=== PATIENT | male | born 1980 | race Caucasian/White ===

== ENCOUNTER 2020-02-24 12:46 | Emergency (ER) | payer OTHER ==
--- NOTE | 2020-02-24 13:03 | ED Physician Documentation ---
PD HPI SKIN - Stated complaint Stated Complaint: CHEST LUMP - History obtained from History obtained from: Patient - History of Present Illness Timing - onset: How many months ago (1) Timing - duration: Months (1) Timing - details: Abrupt onset (noted onset of pain in lower sternal area a month ago, worse at times, and he says he feels a lump in the area at times. Tender to palpation and movement, particularly shoulder crunch type movements. No change with eating. denies regularly cough, fevers, nausea, vomiting.), Waxing and waning Location: Chest Quality / character: Painful, Raised (he says he feels a lump there at times.). No: Itchy, Discolored, Vesicular Associated symptoms: No: Fever, Myalgias, Dyspnea, N/V/D Similar symptoms before: Has not had sx before Recently seen: Clinic (seen at [facility] about it and was to get U/S of the area but referral not through as yet.) Review of Systems Constitutional: denies: Fever, Chills Nose: denies: Rhinorrhea / runny nose, Congestion Throat: denies: Sore throat Cardiac: reports: Chest pain / pressure. denies: Palpitations, Pedal edema, Calf pain Respiratory: denies: Dyspnea, Cough, Wheezing GI: reports: Abdominal Pain (pain is upper abd to lower sternal area.). denies: Nausea, Vomiting, Diarrhea Skin: denies: Rash, Lesions PD PAST MEDICAL HISTORY - Past Medical History Cardiovascular: None Respiratory: None Neuro: None - Present Medications Home Medications: Ambulatory Orders Medication Instructions Recorded Confirmed Diclofenac Sodium 1 applic TP BID #100 gel..gram. 02/24/20 Hydrocodone/Acetaminophen 1 each PO Q6H PRN #15 tablet 02/24/20 [Hydrocodone-Acetamin 5-325 mg] Naproxen 375 mg PO TID #30 tablet 02/24/20 - Allergies Allergies/Adverse Reactions: Allergies Allergy/AdvReac Type Severity Reaction Status Date / Time No Known Drug Allergies Allergy Verified 02/24/20 12:59 - Living Situation Living Arrangement: reports: At home - Social History Does the pt smoke?: No Does the pt have substance abuse?: No PD ED PE NORMAL - Vitals Vital signs reviewed: Yes - General General: Alert and oriented X 3, No acute distress, Well developed/nourished - HEENT HEENT: Moist mucous membranes, Pharynx benign - Neck Neck: Supple, no meningeal sign, No adenopathy - Cardiac Cardiac: RRR, No murmur - Respiratory Respiratory: Clear bilaterally, Other (there is focal tenderness without mass/deformity at lower xyphoid area. No redness, rash nor sores. No epigastric tenderness per se. ) - Abdomen Abdomen: Normal bowel sounds, Soft, Non tender, Non distended Results - Vitals Vitals: Vital Signs - 24 hr 02/24/20 02/24/20 12:59 15:17 Temperature 36.5 C 36.5 C Heart Rate 75 56 L Respiratory 18 16 Rate Blood Pressure 142/79 H 152/90 H O2 Saturation 100 100 Oxygen O2 Source Room air - Labs Labs: Laboratory Tests 02/24/20 13:32 Sodium 137 Potassium 3.2 L Chloride 102 Carbon Dioxide 24 Anion Gap 11.0 BUN 15 Creatinine 1.0 Estimated GFR (MDRD) 83 L Glucose 123 H Calcium 9.3 Total Bilirubin 0.8 AST 25 ALT 25 Alkaline Phosphatase 62 C-Reactive Protein < 1.0 Total Protein 7.3 Albumin 4.7 Globulin 2.6 Albumin/Globulin Ratio 1.8 Lipase 29 - Rads (name of study) chest CT Radiology: Prelim report reviewed (no acute process), See rad report PD MEDICAL DECISION MAKING - ED course Complexity details: reviewed results (given the area of tenderness at zyphoid and seeming behind the lower sternum, I did not feel U/S would be the most effective, and opted for CT with contrast. ), considered differential (seems more tendeerness of the xyphoid. No noted hernia, skin lesion. Not really epigastric per se. ), d/w patient Departure - Departure Disposition: 01 Home, Self Care Clinical Impression: Xyphoidalgia, Upper abdominal pain Condition: Stable Record reviewed to determine appropriate education?: Yes Instructions: ED Chest Pain Costochondritis Prescriptions: Diclofenac Sodium 1 applic TP BID #100 gel..gram. Hydrocodone/Acetaminophen [Hydrocodone-Acetamin 5-325 mg] 1 each PO Q6H PRN #15 tablet PRN Reason: Pain Naproxen 375 mg PO TID #30 tablet Comments: Your CT scan did not show any acute structural abnormality in the area. I resume it some inflammation along the muscle attachment at the cartilage and xiphoid. We can treat this with anti-inflammatories both orally and topically. To that add Tylenol if needed for pain every 4-6 hours. Add pain meds if needed. Follow-up with your primary care regarding further evaluation and treatment. Light duty for the next 5 days. Forms: Activity restrictions Discharge Date/Time: 02/24/20 15:26
[2020-02-24] MEDS ORDERED: KETOROLAC 30 MG/ML VIAL IVP STA (13:17)
[2020-02-24 13:59] LABS: ALBUMIN 4.7 g/dL (3.2-5.5); ALBUMIN/GLOBULIN RATIO 1.8 (1.0-2.2); ALKALINE PHOSPHATASE 62 IU/L (42-121); ALT ALANINE AMINOTRANSFERASE 25 IU/L (10-60); AST ASPARTATE AMINOTRANSFERASE 25 IU/L (10-42); BILIRUBIN,TOTAL 0.8 mg/dL (0.2-1.0); BUN - BLOOD UREA NITROGEN 15 mg/dL (6-20); CALCIUM 9.3 mg/dL (8.5-10.3); CARBON DIOXIDE - CO2 24 mmol/L (21-32); CHLORIDE 102 mmol/L (101-111); GLUCOSE 123 mg/dL (70-100); LIPASE 29 U/L (22-51); SODIUM 137 mmol/L (135-145); TOTAL PROTEIN 7.3 g/dL (6.7-8.2)
[2020-02-24 14:02] LABS: CRP - C-REACTIVE PROTEIN < 1.0 mg/dL (0-1.0)
[2020-02-24] MEDS ORDERED: IOVERSOL 320 100 ML VIAL IVP ONE ×2 (14:09→18:50)
--- NOTE | 2020-02-24 14:27 | CT Report ---
PROCEDURE: CHEST W INDICATIONS: lower sternal/xyphoid area lump/tender CONTRAST: IV CONTRAST: Optiray 320 ml: 100 PO CONTRAST: *NO PO CONTRAST TECHNIQUE: After the administration of intravenous contrast, 5 mm thick sections acquired from the pulmonary api angela to the posterior costophrenic angles. 7 mm thick coronal MIP reformats were acquired. For radia tion dose reduction, the following was used: automated exposure control, adjustment of mA and/or kV according to patient size. COMPARISON: None. FINDINGS: Image quality: Excellent. Lungs and pleura: No acute air space opacities. No pleural effusions or pneumothorax. Central and peripheral airways are patent and normal in caliber. Mediastinum: Heart size is normal. No pericardial effusion. No mediastinal or hilar adenopathy by size criteria. Thoracic aorta and central pulmonary arteries are normal in size. Esophagus is tonya l in caliber. No hiatal hernia. Bones and chest wall: No suspicious bony lesions. No vertebral body compression fractures. No axil pat or supraclavicular adenopathy by size criteria. Thyroid gland is unremarkable. Abdomen: Visualized upper abdominal solid organs appear normal. Upper abdominal bowel loops are nor mal in caliber. Miscellaneous: A radiopaque transplant placed in the midline just inferior to the tip of the sternum, corresponding to subjective palpable abnormality. There is no lesion identified by CT corresponding to this marker. IMPRESSION: 1. There is no lesion seen on CT corresponding to the subjective palpable lump just inferior to the t ip of the sternum. 2. Otherwise unremarkable chest CT with contrast. Reviewed by: Grady Ortiz MD on 02/24/2020 2:25 PM PDT Approved by: Grady Ortiz MD on 02/24/2020 2:25 PM PDT Station ID: [id number]
[2020-02-24 15:18] VITALS: BP 152/90
== END 2020-02-24 15:26 | disposition home or self-care (01) ==
LOC: ED 12:46
DX: R07.2 Precordial pain (principal); R10.10 Upper abdominal pain, unspecified
CPT/HCPCS: 36415; 71260; 80053; 83690; 86140; 96374; 99284; Q9967

== ENCOUNTER 2020-06-16 20:30 | Emergency (ER) | payer SELFPAY ==
--- NOTE | 2020-06-16 21:30 | XRAY Report ---
PROCEDURE: Foot 3 View RT INDICATIONS: PAIN/TENDERNESS L 5TH TOE...STUBBED IT... TECHNIQUE: 3 views of the foot were acquired. COMPARISON: None. FINDINGS: Bones: Fifth digit proximal phalanx minimally displaced fracture at the distal aspect. No dislocation . No suspicious bony lesions. Soft tissues: No tibiotalar joint effusion. Achilles tendon appears normal. IMPRESSION: Fifth digit proximal phalanx minimally displaced fracture. Reviewed by: Silver Meek MD on 06/16/2020 9:29 PM [facility] Approved by: Silver Meek MD on 06/16/2020 9:29 PM [facility] Station ID: [id number]
--- NOTE | 2020-06-16 21:45 | ED Physician Documentation ---
History of Present Illness - Stated complaint Stated Complaint: RT TOE INJ - Chief complaint Chief Complaint: Ext Problem - Treatment prior to arrival Treatment prior to arrival: 39-year-old male presents emergency department for evaluation of acute right small toe pain. He stubbed his toe on some wood that he was using at home to redo his debbie. He noted immediate deviation of the small toe medially with increased pain. No history of previous injury. Review of Systems Constitutional: reports: Reviewed and negative Eyes: reports: Reviewed and negative Ears: reports: Reviewed and negative Nose: reports: Reviewed and negative Throat: reports: Reviewed and negative Cardiac: reports: Reviewed and negative Respiratory: reports: Reviewed and negative GI: reports: Reviewed and negative : reports: Reviewed and negative Skin: reports: Reviewed and negative Musculoskeletal: reports: Joint pain (Right small toe) PD PAST MEDICAL HISTORY - Past Medical History Past Medical History: Yes Cardiovascular: None Respiratory: None Neuro: None Psych: Depression, Anxiety - Past Surgical History Past Surgical History: Yes General: Hiatal hernia repair - Present Medications Home Medications: Ambulatory Orders Medication Instructions Recorded Confirmed Diclofenac Sodium 1 applic TP BID #100 gel..gram. 02/24/20 06/16/20 Hydrocodone/Acetaminophen 1 each PO Q6H PRN #15 tablet 02/24/20 06/16/20 [Hydrocodone-Acetamin 5-325 mg] Naproxen 375 mg PO TID #30 tablet 02/24/20 06/16/20 Fluoxetine HCl [Prozac] 40 mg PO DAILY 06/16/20 06/16/20 Ibuprofen [Motrin] 600 mg PO Q6H PRN #30 tab 06/16/20 buPROPion [Wellbutrin Sr] 150 mg PO DAILY 06/16/20 06/16/20 - Allergies Allergies/Adverse Reactions: Allergies Allergy/AdvReac Type Severity Reaction Status Date / Time No Known Drug Allergies Allergy Verified 06/16/20 20:44 - Social History Does the pt smoke?: No Smoking Status: Never smoker Does the pt drink ETOH?: Yes Does the pt have substance abuse?: No Substance Use and Type: Marijuana - Immunizations Immunizations are current?: Yes Immunizations: TDAP >10years/unknown - POLST Patient has POLST: No PD ED PE EXPANDED - Extremities Extremities: Right toe(s) (2+ DP pulse. Right small toe is rotated and displaced medially.) Results - Vitals Vitals: Vital Signs - 24 hr 06/16/20 06/16/20 20:42 20:46 Temperature 36.8 C 36.8 C Heart Rate 79 79 Respiratory 17 17 Rate Blood Pressure 135/80 H 135/80 H O2 Saturation 98 98 Oxygen O2 Source Room air - Rads (name of study) right foot Radiology: EMP read indepedently (Right small toe proximal phalanx fracture with dislocation) Procedures - Reduction Body part reduced: Right, Toe Fracture or dislocation: Other (Small toe was grabbed distally and pulled with immediate straightening of the toe and improved pain for patient. Toe was madison taped to the ring toe. Postop shoe placed) Reduction aftercare: Splint applied PD MEDICAL DECISION MAKING - ED course Complexity details: reviewed results, re-evaluated patient, considered differential, d/w patient ED course: 39-year-old male presents emergency department with a fractured and displaced right small toe sustained when he stubbed the toe this evening at home. On exam it is obviously dislocated and rotated medially. I was able to pull it into alignment simply by grasping the toe and pulling backwards. It remained in alignment. The toe was madison taped. He was given a postop shoe. He declined a referral to orthopedics. We discussed routine care and management of toe fractures. Departure - Departure Disposition: 01 Home, Self Care Clinical Impression: Toe fracture, right Qualifiers: Encounter type: initial encounter Toe: lesser toe Fracture type: closed Phalanx: proximal Fracture alignment: displaced Qualified Code(s): S92.511A - Displaced fracture of proximal phalanx of right lesser toe(s), initial encounter for closed fracture Condition: Stable Record reviewed to determine appropriate education?: Yes Instructions: ED Fx Toe Closed Follow-Up: [facility] [Provider Group] Prescriptions: Ibuprofen [Motrin] 600 mg PO Q6H PRN #30 tab PRN Reason: Pain Comments: Odell I am glad that your toe feels better. You did fracture the proximal phalanx at the distal tip of it. We have pulled it into alignment. Your toes should remain madison taped for the next 2 to 3 weeks. This will help with stabilization and pain. However it will likely take 6 to 8 weeks for the fracture to fully heal. If you feel that you are having worsening symptoms please return to the emergency department for a second evaluation. I have made a referral for you to orthopedics. Though there is likely no further treatment indicated for this if you would like you may call them for follow-up
[2020-06-16 22:03] VITALS: BP 134/78
== END 2020-06-16 22:04 | disposition home or self-care (01) ==
LOC: ED 20:30
DX: S92.511A Displaced fracture of proximal phalanx of right lesser toe(s), initial encounter for closed fracture (principal); W22.8XXA Striking against or struck by other objects, initial encounter; Y92.009 Unspecified place in unspecified non-institutional (private) residence as the place of occurrence of the external cause
CPT/HCPCS: 28515

== ENCOUNTER 2021-02-23 18:38 | Emergency (ER) | payer OTHER ==
[2021-02-23 19:32] LABS: BILIRUBIN,URINE NEGATIVE (NEGATIVE); GLUCOSE, URINE (UA) NEGATIVE (NEGATIVE); KETONES,URINE (UA) NEGATIVE (NEGATIVE); LEUKOCYTE ESTERASE, URINE NEGATIVE (NEGATIVE); NITRITE,URINE NEGATIVE (NEGATIVE); OCCULT BLOOD,URINE NEGATIVE (NEGATIVE); PROTEIN,URINE NEGATIVE (NEGATIVE); UROBILINOGEN,URINE 0.2 (NORMAL) E.U./dL (NORMAL)
[2021-02-23 19:38] LABS: CLARITY,URINE CLEAR (CLEAR)
--- NOTE | 2021-02-23 19:47 | ED Physician Documentation ---
History of Present Illness - Stated complaint Stated Complaint: ABD PX - Chief complaint Chief Complaint: Abd Pain - History obtained from History obtained from: Patient - Additonal information Additional information: Presents with left testicular pain for the last few days. Is concerned about a possible hernia, states that he has had a left inguinal hernia in the past, repaired when he was much younger. He denies any right-sided pain, she has no fever, chills, abdominal pain, nausea or vomiting, no dysuria or penile discharge, no concern for STI. Review of Systems Constitutional: reports: Reviewed and negative Nose: reports: Reviewed and negative Cardiac: reports: Reviewed and negative Respiratory: reports: Reviewed and negative GI: reports: Reviewed and negative : reports: Testicular pain. denies: Dysuria, Frequency, Hesitancy, Unable to Void, Incontinent Skin: reports: Reviewed and negative Musculoskeletal: reports: Reviewed and negative Neurologic: reports: Reviewed and negative Endocrine: reports: Reviewed and negative PD PAST MEDICAL HISTORY - Past Medical History Past Medical History: Yes Cardiovascular: None Respiratory: None Neuro: None Psych: Depression, Anxiety - Past Surgical History Past Surgical History: Yes General: Hiatal hernia repair - Present Medications Home Medications: Ambulatory Orders Medication Instructions Recorded Confirmed Diclofenac Sodium 1 applic TP BID #100 gel..gram. 02/24/20 06/16/20 Hydrocodone/Acetaminophen 1 each PO Q6H PRN #15 tablet 02/24/20 06/16/20 [Hydrocodone-Acetamin 5-325 mg] Naproxen 375 mg PO TID #30 tablet 02/24/20 06/16/20 Fluoxetine HCl [Prozac] 40 mg PO DAILY 06/16/20 06/16/20 Ibuprofen [Motrin] 600 mg PO Q6H PRN #30 tab 06/16/20 buPROPion [Wellbutrin Sr] 150 mg PO DAILY 06/16/20 06/16/20 - Allergies Allergies/Adverse Reactions: Allergies Allergy/AdvReac Type Severity Reaction Status Date / Time No Known Drug Allergies Allergy Verified 02/23/21 19:00 - Social History Does the pt smoke?: Yes Smoking Status: Current every day smoker Does the pt drink ETOH?: Yes Does the pt have substance abuse?: No - Immunizations Immunizations are current?: Yes Immunizations: TDAP >10years/unknown - POLST Patient has POLST: No PD ED PE NORMAL - Vitals Vital signs reviewed: Yes - General General: Alert and oriented X 3, No acute distress, Well developed/nourished - HEENT HEENT: Atraumatic, Pharynx benign - Neck Neck: Supple, no meningeal sign, No JVD - Cardiac Cardiac: RRR, No murmur - Respiratory Respiratory: No respiratory distress, Clear bilaterally - Abdomen Abdomen: Normal bowel sounds, Soft, Non tender, Non distended - Male Male : Other (Left inguinal pain, no swelling or erythema. no penile dc. ) - Derm Derm: Normal color, Warm and dry, No rash - Neuro Neuro: Alert and oriented X 3 Eye Opening: Spontaneous Motor: Obeys Commands Verbal: Oriented GCS Score: 15 - Psych Psych: Normal mood, Normal affect Results - Vitals Vitals: Vital Signs - 24 hr 02/23/21 19:00 Temperature 36.7 C Heart Rate 106 H Respiratory 18 Rate Blood Pressure 158/89 H O2 Saturation 99 Oxygen O2 Source Room air - Labs Labs: Laboratory Tests 02/23/21 19:20 Urine Color YELLOW Urine Clarity CLEAR Urine pH 7.0 Ur Specific [place] 1.020 Urine Protein NEGATIVE Urine Glucose (UA) NEGATIVE Urine Ketones NEGATIVE Urine Occult Blood NEGATIVE Urine Nitrite NEGATIVE Urine Bilirubin NEGATIVE Urine Urobilinogen 0.2 (NORMAL) Ur Leukocyte Esterase NEGATIVE Ur Microscopic Review NOT INDICATED Urine Culture Comments NOT INDICATED PD MEDICAL DECISION MAKING - ED course Complexity details: reviewed results, re-evaluated patient, considered differential, d/w patient ED course: Presented with left testicle pain. He had a left testicle ultrasound which showed a left inguinal hernia that was reducible, also has a right hydrocele and a right epididymal cyst which he was aware of. He has no teeth UTI and no concern for STI per patient. He was advised to follow-up with outpatient surgery for possible hernia repair, recommended cool compress to the area, ibuprofen or Tylenol for pain. Avoid lifting or straining until he is seen by surgery. Return precautions reviewed in detail including increasing swelling, increasing pain, bloating that is not reducible, penile discharge or dysuria, fever chills or other new concerns. Departure - Departure Disposition: 01 Home, Self Care Clinical Impression: Hydrocele Qualifiers: Hydrocele type: other Qualified Code(s): N43.2 - Other hydrocele Inguinal hernia Qualifiers: Obstruction and gangrene presence: without obstruction or gangrene Laterality: unilateral Recurrence: not specified as recurrent Qualified Code(s): K40.90 - Unilateral inguinal hernia, without obstruction or gangrene, not specified as recurrent Condition: Good Instructions: Hernia Follow-Up: Aidan Cruz MD [Provider Admit Priv/Credential] - Comments: You presented w/ left testicular pain. We did an ultrasound that shows a reducible left hernia. This can be repaired as an outpatient and I have referred you to outpatient surgery clinic. If the pain suddenly worsens and the area is swollen, please return to the ER. Avoid straining or lifting until you are seen by surgery. You also have a right hydrocele and a small right epididymal cyst.
--- NOTE | 2021-02-23 21:45 | Ultrasound Report ---
PROCEDURE: Testicle w/Doppler INDICATIONS: left testicle pain TECHNIQUE: Real-time scanning was performed of the scrotum and testicles, with image documentation. Color and p ulse Doppler interrogation was performed of both testicles. COMPARISON: None. FINDINGS: Right: Testicle is normal in size at 3.8 x 2.1 x 2.9 cm, and homogenous in echotexture. Epididymis is normal in overall size and morphology. Small less than 5 mm cyst noted in the right epididymis. Sm all right hydrocele. No varicoceles. Overlying scrotal skin is normal in thickness. Left: Testicle is normal in size at 3.9 x 1.9 x 2.6 cm, and homogeneous in echotexture. Epididymis is normal in overall size and morphology. No hydrocele or varicoceles. Overlying scrotal skin is no rmal in thickness. Doppler: Color and pulse Doppler demonstrate normal and symmetric arterial flow in both testicles. Left inguinal hernia which contains reducible fat is noted. Left inguinal hernia neck measures 8 and 10 mm. IMPRESSION: 1. No evidence of testicular torsion. 2. Small right hydrocele. 3. Less than 5 mm right epididymal cyst. 4. Left inguinal hernia which contains reducible fat. Reviewed by: Asmita Desai MD, PhD on 02/23/2021 9:44 PM PDT Approved by: Asmita Desai MD, PhD on 02/23/2021 9:44 PM PDT Station ID: [id number]
[2021-02-23 22:05] VITALS: BP 148/81
== END 2021-02-23 22:04 | disposition home or self-care (01) ==
LOC: ED 18:38
DX: K40.90 Unilateral inguinal hernia, without obstruction or gangrene, not specified as recurrent (principal); N43.2 Other hydrocele; N50.3 Cyst of epididymis; F17.200 Nicotine dependence, unspecified, uncomplicated
CPT/HCPCS: 81001; 81003; 87086; 93975; 99283; 99284

== ENCOUNTER 2021-04-14 12:09 | Emergency (ER) | payer OTHER ==
[2021-04-14 12:36] LABS: BASOPHILS % (AUTO) 0.5 %; EOSINOPHILS % (AUTO) 0.1 %; HCT - HEMATOCRIT 45.6 % (42.0-52.0); HGB - HEMOGLOBIN 15.8 g/dL (14.0-18.0); LYMPHOCYTES # (AUTO) 1.6 10^3/uL (1.5-3.5); LYMPHOCYTES % (AUTO) 19.5 %; MEAN CORPUSCULAR HEMOGLOBIN 31.3 pg (27.0-31.0); MEAN CORPUSCULAR HGB CONC 34.6 g/dL (32.0-36.0); MEAN CORPUSCULAR VOLUME 90.5 fL (80.0-94.0); MEAN PLATELET VOLUME 10.3 fL (7.4-11.4); MONOCYTES # (AUTO) 0.4 10^3/uL (0.0-1.0); NEUTROPHILS # (AUTO) 6.3 10^3/uL (1.5-6.6); NEUTROPHILS % (AUTO) 74.5 %; PLT - PLATELET COUNT 244 10^3/uL (130-450); RED BLOOD COUNT 5.04 10^6/uL (4.70-6.10); RED CELL DISTRIBUTION WIDTH 11.9 % (12.0-15.0); WHITE BLOOD COUNT 8.4 x10^3/uL (4.8-10.8)
[2021-04-14 12:54] LABS: BILIRUBIN,URINE NEGATIVE (NEGATIVE); GLUCOSE, URINE (UA) NEGATIVE (NEGATIVE); KETONES,URINE (UA) NEGATIVE (NEGATIVE); LEUKOCYTE ESTERASE, URINE NEGATIVE (NEGATIVE); NITRITE,URINE NEGATIVE (NEGATIVE); OCCULT BLOOD,URINE NEGATIVE (NEGATIVE); PH,URINE 7.5 PH (5.0-7.5); PROTEIN,URINE NEGATIVE (NEGATIVE); UROBILINOGEN,URINE 0.2 (NORMAL) E.U./dL (NORMAL)
[2021-04-14 12:55] LABS: ALBUMIN 4.8 g/dL (3.2-5.5); ALBUMIN/GLOBULIN RATIO 1.8 (1.0-2.2); BILIRUBIN,TOTAL 1.1 mg/dL (0.2-1.0); CREATININE 1.3 mg/dL (0.6-1.2); POTASSIUM 3.3 mmol/L (3.5-5.0); TOTAL PROTEIN 7.5 g/dL (6.7-8.2)
[2021-04-14 12:57] LABS: CLARITY,URINE CLEAR (CLEAR)
--- NOTE | 2021-04-14 13:49 | ED Physician Documentation ---
PD HPI ABD PAIN - Stated complaint Stated Complaint: ABDOMINAL PX - Chief complaint Chief Complaint: Abd Pain - History obtained from History obtained from: Patient - History of Present Illness Timing - onset: Today, How many months ago (several months, possibly years.) Timing - details: Gradual onset, Intermittant, Waxing and waning Pain level max: 8 Pain level now: 2 Quality: Aching, Pain Location: All over / everywhere (mainly R lower abdomen) Radiation: Right flank. No: Chest, , Lower back, Left flank, Left shoulder, Right shoulder, Upper back Improved by: Other (nothing) Worsened by: Moving. No: Eating, Breathing, Position, Palpation Associated symptoms: Diarrhea (states has loose stools). No: Fever, Nausea, Vomiting, Hematemesis, Constipation, Melena, Hematochezia, Dysuria, Hematuria, Chest pain, Dizzy, Near syncope / syncope, Loss of appetite, Weight loss, Testicular pain Review of Systems Ten Systems: 10 systems reviewed and negative Constitutional: denies: Fever, Chills GI: denies: Vomiting, Hematemesis, Bloody / black stool : denies: Dysuria Skin: denies: Rash Musculoskeletal: denies: Neck pain, Back pain Neurologic: denies: Headache PD PAST MEDICAL HISTORY - Past Medical History Past Medical History: Yes Cardiovascular: None Respiratory: None Neuro: None Psych: Depression, Anxiety, Post traumatic stress disorder - Past Surgical History Past Surgical History: Yes General: Hiatal hernia repair - Present Medications Home Medications: Ambulatory Orders Medication Instructions Recorded Confirmed Fluoxetine HCl [Prozac] 40 mg PO DAILY 06/16/20 04/14/21 buPROPion [Wellbutrin Sr] 150 mg PO DAILY 06/16/20 04/14/21 - Allergies Allergies/Adverse Reactions: Allergies Allergy/AdvReac Type Severity Reaction Status Date / Time No Known Drug Allergies Allergy Verified 04/14/21 12:14 - Social History Does the pt smoke?: Yes Smoking Status: Current every day smoker Does the pt drink ETOH?: Yes Does the pt have substance abuse?: No - Immunizations Immunizations are current?: Yes Immunizations: TDAP >10years/unknown - POLST Patient has POLST: No PD ED PE NORMAL - Vitals Vital signs reviewed: Yes - General General: Alert and oriented X 3, No acute distress, Well developed/nourished - HEENT HEENT: Moist mucous membranes - Neck Neck: Supple, no meningeal sign - Cardiac Cardiac: RRR, Strong equal pulses - Respiratory Respiratory: No respiratory distress, Clear bilaterally - Abdomen Abdomen: Soft, Non tender, Non distended - Derm Derm: Warm and dry, No rash - Extremities Extremities: No edema - Neuro Neuro: Alert and oriented X 3 - Psych Psych: Normal mood, Normal affect Results - Vitals Vitals: Vital Signs - 24 hr 04/14/21 04/14/21 12:14 14:44 Temperature 36.5 C 37.1 C Heart Rate 100 79 Respiratory 16 12 Rate Blood Pressure 160/90 H 126/70 O2 Saturation 100 100 Oxygen O2 Source Room air - Labs Labs: Laboratory Tests 04/14/21 04/14/21 04/14/21 12:29 12:29 12:40 WBC 8.4 RBC 5.04 Hgb 15.8 Hct 45.6 MCV 90.5 MCH 31.3 H MCHC 34.6 RDW 11.9 L Plt Count 244 MPV 10.3 Neut # (Auto) 6.3 Lymph # (Auto) 1.6 [place] # (Auto) 0.4 Eos # (Auto) 0.0 Baso # (Auto) 0.0 Absolute Nucleated RBC 0.00 Nucleated RBC % 0.0 Sodium 139 Potassium 3.3 L Chloride 104 Carbon Dioxide 20 L Anion Gap 15.0 H BUN 17 Creatinine 1.3 H Estimated GFR (MDRD) 61 L Glucose 129 H Calcium 10.0 Total Bilirubin 1.1 H AST 27 ALT 20 Alkaline Phosphatase 51 Total Protein 7.5 Albumin 4.8 Globulin 2.7 Albumin/Globulin Ratio 1.8 Lipase 29 Urine Color YELLOW Urine Clarity CLEAR Urine pH 7.5 Ur Specific [place] 1.015 Urine Protein NEGATIVE Urine Glucose (UA) NEGATIVE Urine Ketones NEGATIVE Urine Occult Blood NEGATIVE Urine Nitrite NEGATIVE Urine Bilirubin NEGATIVE Urine Urobilinogen 0.2 (NORMAL) Ur Leukocyte Esterase NEGATIVE Ur Microscopic Review NOT INDICATED Urine Culture Comments NOT INDICATED - Rads (name of study) CT abdomen pelvis Radiology: Final report received, EMP read contemporaneously, See rad report PD MEDICAL DECISION MAKING - ED course Complexity details: reviewed results, re-evaluated patient, considered differential, d/w patient ED course: 40-year-old male presents to the emergency department with several months if not longer of abdominal pain. Unclear etiology. There is a family history of ulcerative colitis. Recommend a colonoscopy for further evaluation. Patient is well-appearing, nontoxic. Afebrile. Pain-free here. Tolerating p.o. without difficulty. Patient counseled regarding signs and symptoms for which I believe and urgent re-evaluation would be necessary. Patient with good understanding of and agreement to plan and is comfortable going home at this time This document was made in part using voice recognition software. While efforts are made to proofread this document, sound alike and grammatical errors may occur. IMPRESSION: 1. No acute disease process. 2. No free fluid or free air. 3. No dilated loops of bowel. 4. Appendix is normal. Departure - Departure Disposition: 01 Home, Self Care Clinical Impression: Abdominal pain Qualifiers: Abdominal location: generalized Qualified Code(s): R10.84 - Generalized abdominal pain Condition: Good Instructions: ED Abdominal Pain Unkn Cause Male Follow-Up: ANDRÉS FRIAS PA-C [Primary Care Provider] - Within 1 week Comments: The cause of your symptoms is unclear today. It is recommended that you have a colonoscopy for further evaluation of possible ulcerative colitis or Crohn's disease. Return if you worsen. Your labs and abdominal/pelvic CT are normal today. Discharge Date/Time: 04/14/21 15:39
[2021-04-14] MEDS ORDERED: IOPAMIDOL-300 100 ML VIAL ONE (14:24)
[2021-04-14 14:44] VITALS: BP 126/70
--- NOTE | 2021-04-14 14:59 | CT Report ---
PROCEDURE: Abdomen/Pelvis W INDICATIONS: RLQ abd pain CONTRAST: IV CONTRAST: Isovue 300 ml: 100 PO CONTRAST: *NO PO CONTRAST TECHNIQUE: After the administration of IV contrast, 5 mm thick sections acquired from the diaphragms to the symp hysis. 5 mm thick coronal and sagittal reformats were acquired. For radiation dose reduction, the f ollowing was used: automated exposure control, adjustment of mA and/or kV according to patient size. COMPARISON: None. FINDINGS: Image quality: Excellent. ABDOMEN: Lung bases: Lung bases are clear. Heart size is normal. Solid organs: Liver and spleen are normal in size and enhancement. Small subcentimeter hypoattenuati ng lesions in the liver which may represent small cysts or hemangiomas, however lesions are too small to definitively characterize. Gallbladder is within normal limits Biliary system is non dilated. Pancreas enhances normally. No adrenal nodules. Kidneys demonstrate normal size and enhancement, wi thout hydronephrosis. Peritoneum and bowel: Bowel loops demonstrate normal wall thickness and caliber. No free fluid or a ir. Appendix is normal. Nodes and vessels: No retroperitoneal or mesenteric adenopathy by size criteria. Aorta and inferior vena cava are normal in size. Miscellaneous: No ventral hernias. PELVIS: Genitourinary: Bladder wall thickness is normal. Miscellaneous: No inguinal hernias or adenopathy. Bones: No suspicious bony lesions. Large Schmorl's node noted in the superior endplate of the L2 willa tebral body. No vertebral body compression fractures. IMPRESSION: 1. No acute disease process. 2. No free fluid or free air. 3. No dilated loops of bowel. 4. Appendix is normal. Reviewed by: Asmita Desai MD, PhD on 04/14/2021 2:58 PM PST Approved by: Asmita Desai MD, PhD on 04/14/2021 2:58 PM PST Station ID: [id number]
[2021-04-14] MEDS ORDERED: IOPAMIDOL-300 100 ML VIAL IVP ONE (18:17)
== END 2021-04-14 15:39 | disposition home or self-care (01) ==
LOC: ED 12:09
DX: R10.84 Generalized abdominal pain (principal); F17.200 Nicotine dependence, unspecified, uncomplicated
CPT/HCPCS: 36415; 74177; 80053; 81003; 83690; 85025; 99284; Q9967; 81001; 87086

== ENCOUNTER 2022-07-24 18:49 | Emergency (ER) | payer OTHER ==
[2022-07-24] MEDS ORDERED: AMOX/CLAV 875 MG/125 MG TABLET PO STA (20:37)
--- NOTE | 2022-07-24 20:40 | ED Physician Documentation ---
History of Present Illness - Stated complaint Stated Complaint: CAT BITE RT HAND - Chief complaint Chief Complaint: Laceration - Additonal information Additional information: 41-year-old male presents emergency department for evaluation of cat bite injury to his right hand. He was attempting to get a cat out from underneath the house when it bit his right hand. He is right-hand dominant. Reports tetanus is up-to-date. Injury occurred just a few hours prior to arrival Review of Systems Constitutional: reports: Reviewed and negative Cardiac: reports: Reviewed and negative Respiratory: reports: Reviewed and negative Skin: reports: Bite / sting PD PAST MEDICAL HISTORY - Past Medical History Cardiovascular: None Respiratory: None Neuro: None Psych: Depression, Anxiety, Post traumatic stress disorder - Past Surgical History Past Surgical History: Yes General: Hiatal hernia repair - Present Medications Home Medications: Ambulatory Orders Medication Instructions Recorded Confirmed Amox/Clav 875/125 [Augmentin] 1 each PO Q12H #20 tablet 07/24/22 Escitalopram Oxalate 20 mg PO DAILY 07/24/22 07/24/22 - Allergies Allergies/Adverse Reactions: Allergies Allergy/AdvReac Type Severity Reaction Status Date / Time No Known Drug Allergies Allergy Verified 07/24/22 18:58 - Social History Does the pt smoke?: Yes Smoking Status: Current every day smoker Does the pt drink ETOH?: Yes Does the pt have substance abuse?: No - Immunizations Immunizations are current?: Yes Immunizations: TDAP >10years/unknown - POLST Patient has POLST: No PD ED PE EXPANDED - Extremities Extremities: Right hand (Cat bite puncture wounds to the dorsum of the right hand between the thumb and index finger. No surrounding swelling or erythema. Normal movement of the hands and fingers without tenderness.) Results - Vitals Vitals: Vital Signs - 24 hr 07/24/22 18:59 Temperature 36.7 C Heart Rate 64 Respiratory 16 Rate Blood Pressure 136/80 H O2 Saturation 97 Oxygen O2 Source Room air PD Medical Decision Making - ED course Complexity details: considered differential, d/w patient ED course: Well-appearing 41-year-old male presents emergency department for evaluation of cat bite wounds to his right hand sustained when he attempted to get a cat out from underneath the house. He does provide the cats vaccine records which show it to be up-to-date. Patient has an up-to-date tetanus. The bite wounds were irrigated at the bedside and bacitracin applied. With the exception of the bite wounds the exam of his hand was otherwise unremarkable. He will be started on Augmentin. We discussed the usual emergent return precautions. Departure - Departure Disposition: 01 Home, Self Care Clinical Impression: Cat bite of hand Qualifiers: Encounter type: initial encounter Laterality: right Qualified Code(s): S61.451A - Open bite of right hand, initial encounter; W55.01XA - Bitten by cat, initial encounter Condition: Stable Record reviewed to determine appropriate education?: Yes Prescriptions: Amox/Clav 875/125 [Augmentin] 1 each PO Q12H #20 tablet Comments: Odell simpson came to the emergency department because you have a cat bite wound to your right hand. You report your tetanus is up-to-date. Cat bite wounds can become infected fairly quickly. Your first dose of Augmentin was given tonight in the ER and a prescription for 10 days of therapy has been sent to the [facility] in [place]. It is important that you place a warm compress over your hand for 10 minutes 2-3 times a day or alternatively soak it in Epsom salt solution that is warm. If at any point you have significant swelling, redness, milky drainage from your wounds or severe pain especially when moving your fingers you must return immediately to the ER for repeat evaluation
[2022-07-24 20:53] VITALS: BP 137/68
== END 2022-07-24 20:54 | disposition home or self-care (01) ==
LOC: ED 18:49
DX: S61.451A Open bite of right hand, initial encounter (principal); W55.01XA Bitten by cat, initial encounter; Y93.K9 Activity, other involving animal care; Y92.009 Unspecified place in unspecified non-institutional (private) residence as the place of occurrence of the external cause; F17.200 Nicotine dependence, unspecified, uncomplicated
CPT/HCPCS: 99282; 99283; A9270